=== PATIENT | male | born 1990 | race Caucasian/White ===

== ENCOUNTER 2024-09-06 15:56 | Observation (INO) | payer BC ==
[2024-09-06] MEDS ORDERED: ONDANSETRON 4 MG/2 ML VIAL ONE (16:38)
[2024-09-06] MEDS ORDERED: KETOROLAC TROMETHAMINE 30 MG/1 ML VIAL ONE (16:38)
[2024-09-06] MEDS: ONDANSETRON 4 MG/2 ML VIAL IVPUSH ONE (16:53)
[2024-09-06] MEDS: SODIUM CHLORIDE 1,000 ML IV STA (16:53)
[2024-09-06] MEDS: KETOROLAC TROMETHAMINE 30 MG/1 ML VIAL IVPUSH ONE (16:53)
[2024-09-06 17:00] LABS: ABSOLUTE IMMATURE GRANULOCYTES 0.01 x10^3/uL (0.0-0.031); BASOPHILS # 0.02 x10^3/uL (0.01-0.08); EOSINOPHIL % 0.8 % (0.8-7.0); EOSINOPHILS # 0.05 x10^3/uL (0.04-0.54); HEMATOCRIT 44.3 % (40.1-51.0); HEMOGLOBIN 15.3 g/dL (13.7-17.5); MCHC 34.5 g/dl (32.3-36.5); MEAN CELL VOLUME 80.5 fl (79.0-92.2); MEAN PLT VOLUME 10.3 fl (9.4-12.4); MONOCYTE % 8.1 % (5.3-12.2); PLATELET COUNT 268 x10^3/uL (163-337); RDW 12.2 % (12.0-15.6)
[2024-09-06 17:07] LABS: INR 1.17 (0.83-1.09); PROTHROMBIN TIME (PATIENT) 12.8 SEC (9.7-13.0)
[2024-09-06 17:19] LABS: EPI CELLS 3 /uL (0-25.1); HYALINE CASTS 0 /uL (0-3.1); PH,URINE 7.5 (5.0-8.0); URINE APPEARANCE CLEAR; URINE BACTERIA 9 /uL (0-1359); URINE BILIRUBIN NEGATIVE (NEGATIVE); URINE COLOR YELLOW; URINE GLUCOSE (UA) NEGATIVE (NEGATIVE); URINE KETONE NEGATIVE (NEGATIVE); URINE LEUK ESTERASE NEGATIVE (NEGATIVE); URINE NITRITE NEGATIVE (NEGATIVE); URINE PROTEIN 1+ (NEGATIVE); URINE RBC 1308 /uL (0-23.9); URINE UROBILINOGEN 0.2 mg/dL (0.2-1.0); URINE WBC 10 /uL (0-25.8)
[2024-09-06 17:23] LABS: POTASSIUM 3.7 mmol/L (3.5-5.1)
[2024-09-06 17:25] LABS: CALCIUM 9.8 mg/dL (8.5-10.1)
[2024-09-06 17:26] LABS: ALBUMIN 4.5 g/dl (3.4-5.0)
[2024-09-06 17:29] LABS: CREATININE 1.2 mg/dL (0.55-1.3)
[2024-09-06 17:31] LABS: BILIRUBIN,TOTAL 0.7 mg/dL (0.2-1); TOT PROT 7.6 g/dl (6.4-8.2)
[2024-09-06] MEDS ORDERED: CEFTRIAXONE 1 G/50 ML PREMIX 50 ML IVPB ONE (18:50)
[2024-09-06] MEDS ORDERED: HYDROmorphone HCL CARPU-JECT 2 MG/1 ML DISP.SYRIN ONE (18:50)
[2024-09-06] MEDS ORDERED: TAMSULOSIN HCL 0.4 MG CAP ONE (18:50)
[2024-09-06] MEDS: TAMSULOSIN HCL 0.4 MG CAP PO ONE (19:02)
[2024-09-06] MEDS: CEFTRIAXONE 1 GM in DEXTROSE 5%-WATER - 100 ML IVPB ONE (19:02)
[2024-09-06] MEDS: HYDROmorphone HCl 2 MG/ML VIAL IVPB ONE (19:02)
[2024-09-06] MEDS: SODIUM CHLORIDE 1,000 ML IV SCH (19:03)
[2024-09-06] MEDS ORDERED: ONDANSETRON 4 MG/2 ML VIAL IVPUSH PRN (19:42)
[2024-09-06] MEDS ORDERED: KETOROLAC TROMETHAMINE 30 MG/1 ML VIAL IVPUSH PRN (19:44)
[2024-09-06] MEDS ORDERED: ACETAMINOPHEN 1000 MG/100 ML BAG IVPB PRN ×2 (19:45→20:14)
[2024-09-06] MEDS ORDERED: morphine SULFATE 4 MG/ML VIAL IVPUSH PRN (20:12)
[2024-09-06 22:25] VITALS: BMI 25.6
[2024-09-07] MEDS: TAMSULOSIN HCL 0.4 MG CAP PO SCH (09:22)
[2024-09-07] MEDS: CEFTRIAXONE 1 G/50 ML PREMIX 50 ML IVPB SCH (09:22)
[2024-09-07] MEDS: KETOROLAC TROMETHAMINE 30 MG/1 ML VIAL IVPUSH PRN (09:23)
[2024-09-07 09:49] LABS: INR 1.12 (0.83-1.09); PROTHROMBIN TIME (PATIENT) 12.2 SEC (9.7-13.0)
[2024-09-07 10:09] LABS: POTASSIUM 3.9 mmol/L (3.5-5.1)
[2024-09-07 10:12] LABS: CALCIUM 8.9 mg/dL (8.5-10.1)
[2024-09-07 10:13] LABS: ALBUMIN 3.7 g/dl (3.4-5.0); MAGNESIUM 1.9 mg/dL (1.8-2.4)
[2024-09-07 10:16] LABS: CREATININE 1.3 mg/dL (0.55-1.3); PHOSPHOROUS 2.8 mg/dL (2.5-4.9)
[2024-09-07 10:17] LABS: BILIRUBIN,TOTAL 0.9 mg/dL (0.2-1); TOT PROT 6.5 g/dl (6.4-8.2)
[2024-09-07 10:50] LABS: HEMATOCRIT 39.4 % (40.1-51.0); HEMOGLOBIN 13.4 g/dL (13.7-17.5); MEAN CELL VOLUME 82.1 fl (79.0-92.2); MEAN PLT VOLUME 10.1 fl (9.4-12.4); PLATELET COUNT 198 x10^3/uL (163-337); RDW 12.3 % (12.0-15.6)
[2024-09-07] MEDS ORDERED: MIDAZOLAM HCL 2 MG/2 ML SINGLE DOSE VIAL ONE (13:53)
[2024-09-07] MEDS ORDERED: PROPOFOL 40 ML ONE (13:53)
[2024-09-07] MEDS ORDERED: LACTATED RINGERS SOLUTION 1,000 ML IV SCH (16:00)
[2024-09-07] MEDS ORDERED: KETOROLAC TROMETHAMINE 30 MG/1 ML VIAL IVPUSH PRN (16:11)
[2024-09-07] MEDS ORDERED: morphine SULFATE 4 MG/ML VIAL IVPUSH PRN (16:11)
[2024-09-07] MEDS ORDERED: ACETAMINOPHEN 1000 MG/100 ML BAG IVPB PRN (16:11)
[2024-09-07] MEDS ORDERED: ONDANSETRON 4 MG/2 ML VIAL IVPUSH PRN (16:11)
[2024-09-07 16:37] VITALS: RESP 16
[2024-09-07] MEDS: SODIUM CHLORIDE 1,000 ML IV SCH (16:51)
[2024-09-07 17:55] VITALS: BP 135/68; PULSE 74
[2024-09-07 17:59] VITALS: TEMP 97.4
== END 2024-09-07 18:45 | disposition home or self-care (01) ==
LOC: JER 15:56 → JERBED 19:10 → J5S 22:15
PROVIDERS: ADMIT Hospitalist; ATTEND Internal Medicine
PROC: 3E03329 Introduction of Other Anti-infective into Peripheral Vein, Percutaneous Approach (ICD-10-PCS; 2024-09-06)
PROC: 3E0333Z Introduction of Anti-inflammatory into Peripheral Vein, Percutaneous Approach (ICD-10-PCS; 2024-09-06)
PROC: 3E033GC Introduction of Other Therapeutic Substance into Peripheral Vein, Percutaneous Approach (ICD-10-PCS; 2024-09-06)
PROC: 0T768DZ Dilation of Right Ureter with Intraluminal Device, Via Natural or Artificial Opening Endoscopic (ICD-10-PCS; principal; 2024-09-07 15:00)
PROC: BT1DZZZ Fluoroscopy of Right Kidney, Ureter and Bladder (ICD-10-PCS; 2024-09-07 15:00)
DX: N13.2 Hydronephrosis with renal and ureteral calculous obstruction (principal); I10 Essential (primary) hypertension; R31.9 Hematuria, unspecified; Z29.9 Encounter for prophylactic measures, unspecified; Z87.442 Personal history of urinary calculi; Z87.891 Personal history of nicotine dependence
CPT/HCPCS: 52332; 52341; 96361; 96365; 96366; 96375; 96376; S2070; 36415; 74176-TC; 76000-TC-FY; 76775-TC; 80053; 81003; 83735; 84100; 85025; 85027; 85610; 85730; 86850; 86900; 86901; 87086; 93005; 93010; 94760; 99285-25; C1758; C2617; G0378